=== PATIENT | male | born 1970 | race Two or more races ===

== ENCOUNTER 2023-08-01 12:29 | Emergency (ER) | payer OTHER ==
[~2023-08-01] VITALS: Ht 162.6 cm; Wt 93.0 kg
[2023-08-01] MEDS ORDERED: COZAAR100 MG (12:48)
[2023-08-01] MEDS ORDERED: METFORMIN HCL1000 M2 (12:48)
[2023-08-01] MEDS ORDERED: TAMS0.4C (12:49)
[2023-08-01 15:27] LABS: HEMOGLOBIN 14.1 g/dL (13-16.00); MEAN CELL VOLUME 89.6 fL (80.0-100.00); MEAN CORPUSCULAR HEMOGLOBIN 30.8 pg (27.00-32.0); MEAN CORPUSCULAR HGB CONC 34.3 g/dl (32.0-36.0); PLATELET COUNT 264 K/uL (150-450); RED BLOOD COUNT 4.58 M/uL (4.00-6.00); RED CELL DISTRIBUTION WIDTH 14.7 % (11.5-14.5)
[2023-08-01 15:44] LABS: INR 0.95; PARTIAL THROMBOPLASTIN TIME 29.9 SECONDS (22.0-34.0)
[2023-08-01 15:46] LABS: CALCIUM 9.9 mg/dL (8.5-10.1); CREATININE SERUM 1.02 mg/dL (0.70-1.30); GFR 76.11; POTASSIUM 4.05 mEq/L (3.5-5.1)
== END 2023-08-01 16:07 | disposition home or self-care (01) ==
LOC: ER 12:29 → EDBD 12:29 → ER 13:45
PROVIDERS: Nurse Practitioner Family
DX: N47.1 Phimosis (principal); I10 Essential (primary) hypertension; E11.9 Type 2 diabetes mellitus without complications; Z79.84 Long term (current) use of oral hypoglycemic drugs; Z88.6 Allergy status to analgesic agent